=== PATIENT | female | born 1975 | race Caucasian/White ===

== ENCOUNTER 2016-10-11 01:42 | Emergency (ER) | payer SELFPAY ==
[~2016-10-11] VITALS: Ht 144.8 cm; Wt 69.7 kg
[2016-10-11] MEDS ORDERED: LORazepam 1MG TABLET ONE (02:19)
[2016-10-11] MEDS ORDERED: LORazepam 1MG TABLET PO ONE (02:30)
[2016-10-11 02:45] LABS: BLOOD UREA NITROGEN 11 mg/dL (7-18)
[2016-10-11 02:48] LABS: IS PT STATUS REG ER OR PRE ER? YES
[2016-10-11 03:50] VITALS: BP 128/68
== END 2016-10-11 03:57 | disposition home or self-care (01) ==
LOC: ED 03:17
DX: F41.1 Generalized anxiety disorder (principal); I10 Essential (primary) hypertension; E78.00 Pure hypercholesterolemia, unspecified
CPT/HCPCS: 36415; 71010; 80048; 82040; 84484; 85025; 93005; 99285

== ENCOUNTER 2018-06-24 22:28 | Emergency (ER) | payer SELFPAY ==
[~2018-06-24] VITALS: Ht 144.8 cm; Wt 65.2 kg
[2018-06-24 22:31] VITALS: BP 149/92
--- NOTE | 2018-06-24 23:04 | NUR ---
CALLED TO ROOM FROM LOBBY/NIL
--- NOTE | 2018-06-24 23:17 | NUR ---
NO ANSWER WHEN CALLED TO BE ROOMED X 2
--- NOTE | 2018-06-25 | NUR ---
NO ANSWER WHEN CALLED TO BE ROOMED X3, PT APPEARS TO HAVE LWBS, [facility] EFFORT MADE TO FIND PT IN BATHROOMS AND AROUND LOBBY
== END 2018-06-25 00:02 | disposition left against medical advice (07) ==
LOC: ED 23:56
DX: R42 Dizziness and giddiness (principal); F41.9 Anxiety disorder, unspecified; Z53.21 Procedure and treatment not carried out due to patient leaving prior to being seen by health care provider